=== PATIENT | male | born 1935 | race Native Hawaiian/Other Pacific Islander ===

== ENCOUNTER 2018-05-23 11:18 | Inpatient (IN) | payer MEDICARE, MEDICAID ==
[2018-05-23] MEDS: Albuterol-Ipratrop 3 mg / 0.5 (3 ml) UD IH SCH ×2 (12:45→12:59)
[2018-05-23] MEDS ORDERED: Albuterol-Ipratrop 3 mg / 0.5 (3 ml) UD ONE (12:55)
--- NOTE | 2018-05-23 13:00 | C.PDOC ---
History Of Present Illness 83 y/o male presents to the ED, sent in by Dr. Anastasiia Cheung. Patient has been complaining of SOB for the past 2 months. Per PMD, patient has some type of liver mass that is being worked up outpatient. Today patient had increased SOB. Family notes patient can barely walk to the bathroom without becoming short of breath. Otherwise they deny any pain, fever, chills, dizziness, weakness, numbness, or lower extremity swelling. Time Seen by Provider: 05/23/18 11:57 Chief Complaint (Nursing): Shortness Of Breath History Per: Patient History/Exam Limitations: no limitations Onset/Duration Of Symptoms: Days Current Symptoms Are (Timing): Worse Reports Recently: Treated By A Physician Past Medical History Reviewed: Historical Data, Nursing Documentation, Vital Signs Vital Signs: Last Vital Signs Temp 98.5 F 05/23/18 11:32 Pulse 104 H 05/23/18 11:32 Resp 18 05/23/18 11:32 BP 153/74 H 05/23/18 11:32 Pulse Ox 100 05/23/18 11:32 - Medical History PMH: Diabetes, HTN Family History: States: Unknown Family Hx - Social History Hx Alcohol Use: No Hx Substance Use: No - Immunization History Hx Tetanus Toxoid Vaccination: No Hx Influenza Vaccination: No Hx Pneumococcal Vaccination: No Review Of Systems Constitutional: Positive for: Weakness. Negative for: Fever, Chills Cardiovascular: Negative for: Chest Pain Respiratory: Positive for: Shortness of Breath, SOB with Excertion Gastrointestinal: Negative for: Vomiting, Abdominal Pain Skin: Negative for: Rash Physical Exam - Physical Exam Appears: Non-toxic, No Acute Distress, Other (Thin, frail man) Skin: Warm, Dry Head: Atraumatic, Normacephalic Eye(s): bilateral: Normal Inspection, PERRL, EOMI Oral Mucosa: Moist Neck: Normal ROM Chest: Symmetrical Cardiovascular: Rhythm Regular, No Murmur Respiratory: Normal Breath Sounds, No Rales, No Rhonchi, No Wheezing Gastrointestinal/Abdominal: Soft, No Tenderness, No Distention Extremity: Bilateral: Atraumatic, No Pedal Edema, Normal ROM Pulses: Left Dorsalis Pedis: Normal, Right Dorsalis Pedis: Normal Neurological/Psych: Oriented x3 Gait: Steady ED Course And Treatment - Laboratory Results Result Diagrams: 05/23/18 12:51 05/23/18 13:59 Lab Interpretation: Abnormal ECG: Interpreted By Co ECG Rhythm: Sinus Rhythm ECG Interpretation: No Acute Changes O2 Sat by Pulse Oximetry: 100 (RA) Pulse Ox Interpretation: Normal - Radiology CXR: Interpreted by Co CXR Interpretation: Yes: No Acute Disease - CT Scan/US No standard instances Other Rad Studies (CT/US): Read By Radiologist, Radiology Report Reviewed CT/US Interpretation: FINDINGS: CT CHEST WITHOUT CONTRAST: LUNGS: Limited linear atelectasis or fibrosis left upper lobe. No nodule, mass or consolidation. Trace bilateral basilar dependent atelectasis evident. M EDIASTINUM: Unremarkable. Normal caliber aorta and pulmonary arterial trunk. Normal size heart. LYMPH NODES: Unremarkable. PLEURA: There is a moderate- sized pleural/subpleural mass identified at the medial left apex measuring 2.0 x 4.2 x 3.7 cm (transverse x anteroposterior by superoinferior dimensions) eroding the medial posterior segment of the left 4th rib as well as the anterior and mid portions of the left T4 transverse process as well as a small portion of the inferior margins of the left T3 transverse process. No additional pleural mass identified bilaterally. No pleural effusion or pneumothorax identified bilaterally. BONES: See pleural section above. OTHER FINDINGS: None. CT ABDOMEN AND PELVIS: LIVER: There is a large mass in the right lobe liver measuring at least 8.4 x 8.1 x 9.4 cm with additional mass is suspected at the right and left lobes but poorly characterized given this unenhanced CT exam. No prominent biliary tree dilatation. GALLBLADDER AND BILE DUCTS: Unremarkable. PANCREAS: Unremarkable. No gross lesion or ductal dilatation. SPLEEN: Unremarkable. ADRENALS: Unremarkable. No mass. KIDNEYS AND URETERS: Unremarkable. No hydronephrosis. No solid mass. VASCULATURE: Nonaneurysmal abdominal aortic calcific atherosclerotic changes are identified. BOWEL: Evaluation of the gastrointestinal tract is limited due to the lack of oral contrast administration. No bowel obstruction appreciable. Moderate fecal loading throughout the colon. Sigmoid diverticulosis is noted without diverticulitis. A few nonacute diverticular changes seen at the cecum as well. APPENDIX: Normal appendix. PERITONEUM: Unremarkable. No free fluid. No free air. LYMPH NODES: Unremarkable. No enlarged lymph nodes. BLADDER: Unremarkable. REPRODUCTIVE: Mild prostate gland enlargement. BONES: Levoscoliotic lumbar spinal deformity. OTHER FINDINGS: None. IMPRESSION: 1. Medium sized medial left apical pleural mass measuring 4.2 cm greatest dimension with multiple hepatic mass identified highly suggestive of malignancy. Tissue diagnosis is advised at either site. Lack of contrast limits sensitivity and specificity of this examination. 2. No acute cardiopulmonary findings. 3. Colonic diverticular changes without diverticulitis. 4. Mild prostate gland enlargement. Progress Note: Treated with Insulin IV. On re-evaluation abdomen soft Reassessment Condition: Improved - Physician Consult Information Physician Contacted: Shahrzad Cheung Outcome Of Conversation: admit Medical Decision Making Medical Decision Making: Impression: Worsening SOB, hx of lung mass Plan: - Labs - EKG - Chest x-ray - CT Abdomen/Pelvis - CTA Chest - Duoneb x1 Case discussed with Dr. nAastasiia Cheung, will admit. Disposition Discussed With Dr.: Shahrzad Cheung Doctor Will See Patient In The: Hospital - Disposition Disposition: HOSPITALIZED Disposition Time: 17:00 Condition: STABLE - POA Present On Arrival: None - Clinical Impression Clinical Impression: Dyspnea - PA / FORM LAYER / Resident Statement MD/DO has reviewed & agrees with the documentation as recorded. - Scribe Statement The provider has reviewed the documentation as recorded by the Scribe Merlene Bain All medical record entries made by the Esdras were at my direction and personally dictated by me. I have reviewed the chart and agree that the record accurately reflects my personal performance of the history, physical exam, medical decision making, and the department course for this patient. I have also personally directed, reviewed, and agree with the discharge instructions and disposition. Decision To Admit - Pt Status Changed To: Hospital Disposition Of: Inpatient - Admit Certification Admit to Inpatient:: After my assessment, the patient will require hospitalization for at least two midnights. This is because of the severity of symptoms shown, intensity of services needed, and/or the medical risk in this patient being treated as an outpatient. - InPatient: Physician Admission Certification: I certify that this patient requires 2 or more midnights of care for the following reason:: dyspnea - . Bed Request Type: Regular Patient Diagnosis: Dyspnea
[2018-05-23 13:04] LABS: BASO # 0.1 K/uL (0.0-0.2); BASO % 1.1 % (0.0-2.0); EOS # 0.1 K/uL (0.0-0.7); EOS % 1.4 % (0.0-4.0); LYMPH # 0.8 K/uL (1.0-4.3); LYMPH % 8.3 % (20.0-40.0); MEAN CORPUSCULAR HEMOGLOBIN 29.2 pg (27.0-31.0); MEAN PLATELET VOLUME 7.8 fL (7.2-11.7); MONO % 10.5 % (0.0-10.0); NEUT # 7.2 K/uL (1.8-7.0); NEUT % 78.7 % (50.0-75.0); NRBC % 0.2 % (0.0-2.0); RBC 2.83 Mil/uL (4.40-5.90); RED CELL DISTRIBUTION WIDTH 15.9 % (11.5-14.5)
[2018-05-23 13:06] LABS: HEMOGLOBIN 8.3 g/dL (12.0-18.0); MEAN CELL VOLUME 88.5 fL (80.0-94.0); PLATELET COUNT 507 K/uL (130-400); WHITE BLOOD COUNT 9.1 K/uL (4.8-10.8)
[2018-05-23 13:16] LABS: INR 1.1; PROTHROMBIN TIME 12.5 SECONDS (9.7-12.2)
[2018-05-23 14:12] LABS: SQUAMOUS EPITHIAL 3 /hpf (0-5); URINE BILIRUBIN NEGATIVE (NEGATIVE); URINE BLOOD NEGATIVE (NEGATIVE); URINE CLARITY Clear (Clear); URINE COLOR Yellow (YELLOW); URINE GLUCOSE (UA) 3+ mg/dL (Normal); URINE LEUKOCYTE ESTERASE NEG Leu/uL (Negative); URINE PROTEIN 1+ mg/dL (NEGATIVE); URINE UROBILINOGEN NORMAL mg/dL (0.2-1.0)
[2018-05-23 14:17] LABS: ANISOCYTOSIS SLIGHT; BANDS 1 % (0-2); BASOPHIL 2 % (0-2); EOSINOPHIL 1 % (0-4); LYMPHOCYTE 8 % (20-40); MONOCYTE 6 % (0-10); NEUTROPHIL 82 % (50-75); PLATELET ESTIMATE INCREASED (NORMAL); TOTAL CELLS COUNTED 100
[2018-05-23 14:26] LABS: TROPONIN I 0.037 ng/mL (0.00-0.120)
--- NOTE | 2018-05-23 14:35 | RAD ---
Date of service: 05/23/2018 HISTORY: Shortness of breath COMPARISON: 08/12/2014. TECHNIQUE: Chest PA and lateral FINDINGS: LINES AND TUBES: None. LUNG AND PLEURA: The lungs are well inflated and clear. No pleural effusion or pneumothorax. HEART AND MEDIASTINUM: The heart is not enlarged. No aortic atherosclerotic calcifications present. The hilar and mediastinal contours are within normal limits. SKELETAL STRUCTURES: The bony structures are within normal limits for the patient's age. VISUALIZED UPPER ABDOMEN: Normal. OTHER FINDINGS: None. IMPRESSION: No active pulmonary disease.
[2018-05-23 14:51] LABS: ALB/GLOB RATIO 0.8 (1.0-2.1); ALBUMIN 3.4 g/dL (3.5-5.0); CALCIUM 9.4 mg/dl (8.6-10.4)
[2018-05-23] MEDS ORDERED: (Novolin R) Insulin Human Regular 100 units/ml vial IVP STA (14:57)
--- NOTE | 2018-05-23 16:40 | CT ---
Date of service: 05/23/2018 PROCEDURE: CT Chest, Abdomen and Pelvis without intravenous contrast HISTORY: dyspnea COMPARISON: None available. TECHNIQUE: Radiation dose: Total exam DLP = 291.92 mGy-cm. This CT exam was performed using one or more of the following dose reduction techniques: Automated exposure control, adjustment of the mA and/or kV according to patient size, and/or use of iterative reconstruction technique. FINDINGS: CT CHEST WITHOUT CONTRAST: LUNGS: Limited linear atelectasis or fibrosis left upper lobe. No nodule, mass or consolidation. Trace bilateral basilar dependent atelectasis evident. MEDIASTINUM: Unremarkable. Normal caliber aorta and pulmonary arterial trunk. Normal size heart. LYMPH NODES: Unremarkable. PLEURA: There is a moderate-sized pleural/subpleural mass identified at the medial left apex measuring 2.0 x 4.2 x 3.7 cm (transverse x anteroposterior by superoinferior dimensions) eroding the medial posterior segment of the left 4th rib as well as the anterior and mid portions of the left T4 transverse process as well as a small portion of the inferior margins of the left T3 transverse process. No additional pleural mass identified bilaterally. No pleural effusion or pneumothorax identified bilaterally. BONES: See pleural section above. OTHER FINDINGS: None. CT ABDOMEN AND PELVIS: LIVER: There is a large mass in the right lobe liver measuring at least 8.4 x 8.1 x 9.4 cm with additional mass is suspected at the right and left lobes but poorly characterized given this unenhanced CT exam. No prominent biliary tree dilatation. GALLBLADDER AND BILE DUCTS: Unremarkable. PANCREAS: Unremarkable. No gross lesion or ductal dilatation. SPLEEN: Unremarkable. ADRENALS: Unremarkable. No mass. KIDNEYS AND URETERS: Unremarkable. No hydronephrosis. No solid mass. VASCULATURE: Nonaneurysmal abdominal aortic calcific atherosclerotic changes are identified. BOWEL: Evaluation of the gastrointestinal tract is limited due to the lack of oral contrast administration. No bowel obstruction appreciable. Moderate fecal loading throughout the colon. Sigmoid diverticulosis is noted without diverticulitis. A few nonacute diverticular changes seen at the cecum as well. APPENDIX: Normal appendix. PERITONEUM: Unremarkable. No free fluid. No free air. LYMPH NODES: Unremarkable. No enlarged lymph nodes. BLADDER: Unremarkable. REPRODUCTIVE: Mild prostate gland enlargement. BONES: Levoscoliotic lumbar spinal deformity. OTHER FINDINGS: None. IMPRESSION: 1. Medium sized medial left apical pleural mass measuring 4.2 cm greatest dimension with multiple hepatic mass identified highly suggestive of malignancy. Tissue diagnosis is advised at either site. Lack of contrast limits sensitivity and specificity of this examination. 2. No acute cardiopulmonary findings. 3. Colonic diverticular changes without diverticulitis. 4. Mild prostate gland enlargement.
[2018-05-23] MEDS ORDERED: Dextrose 50% SYRINGE Inj (50 ml) IV PRN (16:53)
[2018-05-23] MEDS ORDERED: Glucagon Recombinant 1 mg Inj IM PRN (16:53)
[2018-05-23] MEDS: (Novolin R) Insulin Human Regular 100 units/ml vial SC SCH ×2 (17:49→21:22)
--- NOTE | 2018-05-23 18:51 | CP.PCM.HP ---
Present on Admission - Present on Admission Any Indicators Present on Admission: No Past Patient History - Past Social History Smoking Status: Never Smoked - CARDIAC Hx Hypertension: Yes - ENDOCRINE/METABOLIC Hx Endocrine Disorders: Yes Hx Diabetes Mellitus Type 2: Yes - PSYCHIATRIC Hx Substance Use: No - SURGICAL HISTORY Hx Surgeries: No - ANESTHESIA Hx Anesthesia: No Meds Allergies/Adverse Reactions: Allergies Allergy/AdvReac Type Severity Reaction Status Date / Time No Known Allergies Allergy Verified 05/23/18 11:37 Physical Exam - Constitutional Appears: Well - Head Exam Head Exam: ATRAUMATIC, NORMAL INSPECTION, NORMOCEPHALIC - Eye Exam Eye Exam: EOMI, Normal appearance, PERRL Pupil Exam: NORMAL ACCOMODATION, PERRL - ENT Exam ENT Exam: Mucous Membranes Moist, Normal Exam - Neck Exam Neck exam: Positive for: Normal Inspection - Respiratory Exam Respiratory Exam: Decreased Breath Sounds - Cardiovascular Exam Cardiovascular Exam: REGULAR RHYTHM, +S1, +S2 - GI/Abdominal Exam GI & Abdominal Exam: Diminished Bowel Sounds, Soft - Rectal Exam Rectal Exam: Deferred Results - Vital Signs Recent Vital Signs: Last Vital Signs Temp 98.7 F 05/23/18 16:26 Pulse 108 H 05/23/18 16:26 Resp 20 05/23/18 16:26 BP 161/83 H 05/23/18 16:26 Pulse Ox 100 05/23/18 17:25 - Labs Result Diagrams: 05/23/18 12:51 05/23/18 13:59 Labs: Laboratory Results - last 24 hr 05/23/18 05/23/18 05/23/18 12:51 12:51 13:45 WBC 9.1 D RBC 2.83 L Hgb 8.3 L D Hct 25.0 L MCV 88.5 D MCH 29.2 MCHC 33.0 RDW 15.9 H Plt Count 507 H D MPV 7.8 Neut % (Auto) 78.7 H Lymph % (Auto) 8.3 L Mason % (Auto) 10.5 H Eos % (Auto) 1.4 Baso % (Auto) 1.1 Neut # (Auto) 7.2 H Lymph # (Auto) 0.8 L Mason # (Auto) 1.0 H Eos # (Auto) 0.1 Baso # (Auto) 0.1 Neutrophils % (Manual) 82 H Band Neutrophils % 1 Lymphocytes % (Manual) 8 L Monocytes % (Manual) 6 Eosinophils % (Manual) 1 Basophils % (Manual) 2 Platelet Estimate Increased H Anisocytosis (manual) Slight PT 12.5 H INR 1.1 Sodium Potassium Chloride Carbon Dioxide Anion Gap BUN Creatinine Est GFR ( Amer) Est GFR (Non-Af Amer) POC Glucose (mg/dL) Random Glucose Calcium Total Bilirubin AST ALT Alkaline Phosphatase Troponin I NT-Pro-B Natriuret Pep Total Protein Albumin Globulin Albumin/Globulin Ratio Amylase Lipase Urine Color Yellow Urine Clarity Clear Urine pH 6.0 Ur Specific [place] 1.017 Urine Protein 1+ H Urine Glucose (UA) 3+ H Urine Ketones Negative Urine Blood Negative Urine Nitrate Negative Urine Bilirubin Negative Urine Urobilinogen Normal Ur Leukocyte Esterase Neg Urine WBC (Auto) 1 Ur Squamous Epith Cells 3 05/23/18 05/23/18 13:59 16:31 WBC RBC Hgb Hct MCV MCH MCHC RDW Plt Count MPV Neut % (Auto) Lymph % (Auto) Mason % (Auto) Eos % (Auto) Baso % (Auto) Neut # (Auto) Lymph # (Auto) Mason # (Auto) Eos # (Auto) Baso # (Auto) Neutrophils % (Manual) Band Neutrophils % Lymphocytes % (Manual) Monocytes % (Manual) Eosinophils % (Manual) Basophils % (Manual) Platelet Estimate Anisocytosis (manual) PT INR Sodium 132 Potassium 5.6 H Chloride 103 Carbon Dioxide 17 L Anion Gap 17 BUN 33 H Creatinine 1.8 H Est GFR ( Amer) 44 Est GFR (Non-Af Amer) 36 POC Glucose (mg/dL) 348 H Random Glucose 502 H* D Calcium 9.4 Total Bilirubin 0.5 AST 102 H ALT 77 H D Alkaline Phosphatase 204 H Troponin I 0.0370 NT-Pro-B Natriuret Pep 7350 H Total Protein 7.9 Albumin 3.4 L Globulin 4.5 H Albumin/Globulin Ratio 0.8 L Amylase 78 Lipase 471 H Urine Color Urine Clarity Urine pH Ur Specific [place] Urine Protein Urine Glucose (UA) Urine Ketones Urine Blood Urine Nitrate Urine Bilirubin Urine Urobilinogen Ur Leukocyte Esterase Urine WBC (Auto) Ur Squamous Epith Cells
[2018-05-24] MEDS: (Novolin R) Insulin Human Regular 100 units/ml vial SC SCH ×4 (08:18→21:30)
[2018-05-24] MEDS: Ferric Sodium Gluconat Complex 62.5 mg/5 ml Vial IVPB SCH (11:03)
--- NOTE | 2018-05-24 12:23 | CARD ---
APPROVED REPORT Date of service: 05/23/2018 EKG Measurement Heart [id number] <Conclusion> Normal sinus rhythm Left axis deviation Nonspecific ST and T wave abnormality Abnormal ECG
--- NOTE | 2018-05-24 17:43 | CP.PCM.PN ---
Subjective - Date & Time of Evaluation Date of Evaluation: 05/24/18 Time of Evaluation: 07:45 - Subjective Subjective: clinically same Objective - Vital Signs/Intake and Output Vital Signs (last 24 hours): Temp Pulse Resp BP Pulse Ox 98.1 F 99 H 20 127/75 99 05/24/18 16:17 05/24/18 16:17 05/24/18 16:17 05/24/18 16:17 05/24/18 16:17 Intake and Output: 05/24/18 05/24/18 06:59 18:59 Intake Total 320 500 Output Total 350 Balance -30 500 - Medications Medications: Current Medications Dextrose (Dextrose 50% Inj) 0 ml IV STAT PRN; Protocol PRN Reason: Hypoglycemia Protocol Dextrose (Glutose 15) 0 gm PO ONCE PRN; Protocol PRN Reason: Hypoglycemia Protocol Famotidine (Pepcid) 20 mg PO DAILY [facility] Last Admin: 05/24/18 11:03 Dose: 20 mg Ferric Sodium Gluconate Complex (Ferrlecit) 125 mg IVPB DAILY [facility] Stop: 06/01/18 10:01 Last Admin: 05/24/18 11:03 Dose: 125 mg Furosemide (Lasix) 40 mg PO DAILY [facility] Last Admin: 05/24/18 11:02 Dose: 40 mg Glimepiride (Amaryl) 2 mg PO DAILY [facility] Last Admin: 05/24/18 11:05 Dose: Not Given Glucagon (Glucagen Diagnostic Kit) 0 mg IM STAT PRN; Protocol PRN Reason: Hypoglycemia Protocol Dextrose (Dextrose 5% In Water 1000 Ml) 1,000 mls @ 0 mls/hr IV .Q0M PRN; Protocol PRN Reason: Hypoglycemia Protocol Insulin Human Regular (Novolin R) 0 unit SC ACHS [facility]; Protocol Last Admin: 05/24/18 12:53 Dose: 2 units Metoprolol Tartrate (Lopressor) 50 mg PO BID [facility] Last Admin: 05/24/18 17:18 Dose: 50 mg Rosuvastatin Calcium (Crestor) 5 mg PO HS [facility] Last Admin: 05/23/18 22:29 Dose: 5 mg Sitagliptin Phosphate (Januvia) 50 mg PO DAILY [facility] - Labs Labs: 05/23/18 12:51 05/23/18 13:59 PT 12.5 SECONDS (9.7-12.2) H 05/23/18 12:51 INR 1.1 02/06/19 12:51 - Constitutional Appears: Well - Head Exam Head Exam: ATRAUMATIC, NORMAL INSPECTION, NORMOCEPHALIC - Eye Exam Eye Exam: EOMI, Normal appearance, PERRL Pupil Exam: NORMAL ACCOMODATION, PERRL - ENT Exam ENT Exam: Mucous Membranes Moist, Normal Exam - Neck Exam Neck Exam: Full ROM, Normal Inspection. absent: Lymphadenopathy - Respiratory Exam Respiratory Exam: Decreased Breath Sounds - Cardiovascular Exam Cardiovascular Exam: REGULAR RHYTHM, +S1, +S2 - GI/Abdominal Exam GI & Abdominal Exam: Soft, Diminished Bowel Sounds - Rectal Exam Rectal Exam: Deferred
--- NOTE | 2018-05-24 20:32 | CON ---
DATE: 05/24/2018 HEMATOLOGY/ONCOLOGY CONSULTATION REASON FOR CONSULTATION: Lung and liver mass. 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 The patient was advised to continue monitoring the hepatoma with CAT scan, did not follow up after that. Recently, he was seen by Dr. Mayela Cheung with some shortness of breath for the past two months and was being worked up for the same. When came in to the ER for shortness of breath, fairly able to walk to the bathroom with some weight loss. He underwent a CAT scan of the chest, abdomen and pelvis in the hospital and was found to have a left-sided lung mass with infiltration into the ribs as well as multiple liver masses, hence Oncology consult has been requested. He complains of weakness and shortness of breath. No fevers or chills. Denies any vomiting or abdominal pain. He does state that his appetite has been poor and he has lost some weight. PAST MEDICAL HISTORY: Diabetes and hypertension. FAMILY HISTORY: Unknown. SOCIAL HISTORY: No social abuse of alcohol or smoker. PHYSICAL EXAMINATION: VITAL SIGNS: Temperature is 98.4, blood pressure is 150/70, pulse of 100, respirations 18. HEENT: Pale. No scleral icterus is seen. NECK: Supple. CHEST: Bilateral air entry is fair. CARDIOVASCULAR SYSTEM: S1 and S2. ABDOMEN: Soft. Hepatomegaly palpable. LABORATORY DATA: Labs show white count of 9.1, hemoglobin of 8.3, platelets of 507. BUN of 33, creatinine of 1.8. CAT scan of the chest, abdomen, and pelvis shows medium-sized medial left apical pleural mass measuring about 4.2 cm with multiple hepatic masses identified suggestive of malignancy. ASSESSMENT AND PLAN: An 83-year-old male with lung and liver mass. We will need a CT-guided biopsy of the liver mass to determine the etiology of the cancer. We will obtain tumor markers in the form of carcinoembryonic antigen and alpha-fetoprotein to determine what is the primary malignancy. We will continue to monitor the labs closely as the patient is anemic. We will obtain anemia workup in the form of ferritin, iron, B12, folic acid to determine the cause of the anemia, which probably is related to the malignancy. We will start on ferrelicit 125 mg daily. In the meantime, coags are normal. We will obtain CT-guided biopsy. Further recommendations once above obtained. Case will be discussed with Dr. Mayela Cheung. Thank you for the consult. Case was discussed with Dr. Kushal Cheung. We will follow the patient with you. Manjula Armando MD MTDD
[2018-05-25 07:25] LABS: BASO # 0.1 K/uL (0.0-0.2); BASO % 0.7 % (0.0-2.0); EOS # 0.3 K/uL (0.0-0.7); EOS % 3.2 % (0.0-4.0); HEMOGLOBIN 8.2 g/dL (12.0-18.0); LYMPH # 1.3 K/uL (1.0-4.3); LYMPH % 13.9 % (20.0-40.0); MEAN CORPUSCULAR HEMOGLOBIN 29.5 pg (27.0-31.0); MEAN CORPUSCULAR HGB CONC 34.2 g/dL (33.0-37.0); MEAN PLATELET VOLUME 7.8 fL (7.2-11.7); MONO # 1.1 K/uL (0.0-0.8); MONO % 12.1 % (0.0-10.0); NEUT # 6.4 K/uL (1.8-7.0); NEUT % 70.1 % (50.0-75.0); RBC 2.79 Mil/uL (4.40-5.90); RED CELL DISTRIBUTION WIDTH 15.5 % (11.5-14.5); WHITE BLOOD COUNT 9.1 K/uL (4.8-10.8)
[2018-05-25 07:35] LABS: IRON 36 ug/dL (49-181)
[2018-05-25 07:41] LABS: MEAN CELL VOLUME 86.2 fL (80.0-94.0)
[2018-05-25 07:43] VITALS: RESP 20
[2018-05-25] MEDS: (Novolin R) Insulin Human Regular 100 units/ml vial SC SCH ×4 (07:43→22:07)
[2018-05-25 07:45] LABS: % IRON SATURATION 14 (20-55); TOTAL IRON BINDING CAPACITY 257 ug/dL (250-450)
[2018-05-25 07:48] LABS: ALB/GLOB RATIO 0.8 (1.0-2.1); ALBUMIN 3.3 g/dL (3.5-5.0); ALT/SGPT 86 U/L (21-72); AST/SGOT 120 U/L (17-59); BLOOD UREA NITROGEN 32 mg/dL (9-20); CALCIUM 9.1 mg/dl (8.6-10.4); GFR NON-AFRICAN AMERICAN 29
[2018-05-25 08:33] LABS: FOLATE > 20.0 ng/mL
[2018-05-25] MEDS: Ferric Sodium Gluconat Complex 62.5 mg/5 ml Vial IVPB SCH (10:14)
[2018-05-25] MEDS: Multivitamin (MVI) 10 ML, Thiamine 100 MG, Folic Acid 1 MG in Sodium Chloride 0.9% 1,00... IV SCH (17:10)
--- NOTE | 2018-05-25 19:23 | CP.PCM.PN ---
Subjective - Date & Time of Evaluation Date of Evaluation: 05/25/18 Time of Evaluation: 07:45 - Subjective Subjective: clinically same Objective - Vital Signs/Intake and Output Vital Signs (last 24 hours): Temp Pulse Resp BP Pulse Ox 98.4 F 104 H 20 126/75 100 05/25/18 16:00 05/25/18 16:00 05/25/18 16:00 05/25/18 16:00 05/25/18 16:00 Intake and Output: 05/25/18 05/26/18 18:59 06:59 Intake Total 500 Balance 500 - Medications Medications: Current Medications Dextrose (Dextrose 50% Inj) 0 ml IV STAT PRN; Protocol PRN Reason: Hypoglycemia Protocol Dextrose (Glutose 15) 0 gm PO ONCE PRN; Protocol PRN Reason: Hypoglycemia Protocol Famotidine (Pepcid) 20 mg PO DAILY [facility] Last Admin: 05/25/18 10:13 Dose: 20 mg Ferric Sodium Gluconate Complex (Ferrlecit) 125 mg IVPB DAILY [facility] Stop: 06/01/18 10:01 Last Admin: 05/25/18 10:14 Dose: 125 mg Furosemide (Lasix) 40 mg PO DAILY [facility] Last Admin: 05/25/18 10:13 Dose: 40 mg Glimepiride (Amaryl) 2 mg PO DAILY [facility] Last Admin: 05/25/18 10:15 Dose: Not Given Glucagon (Glucagen Diagnostic Kit) 0 mg IM STAT PRN; Protocol PRN Reason: Hypoglycemia Protocol Dextrose (Dextrose 5% In Water 1000 Ml) 1,000 mls @ 0 mls/hr IV .Q0M PRN; Protocol PRN Reason: Hypoglycemia Protocol Multivitamins/Vitamin C 10 ml/Thiamine HCl 100 mg/ Folic Acid 1 mg/ Sodium Chloride 1,011.2 mls @ 60 mls/hr IV Q24H [facility] Last Admin: 05/25/18 17:10 Dose: 60 mls/hr Insulin Human Regular (Novolin R) 0 unit SC ACHS [facility]; Protocol Last Admin: 05/25/18 16:30 Dose: 2 units Metoprolol Tartrate (Lopressor) 50 mg PO BID [facility] Last Admin: 05/25/18 17:10 Dose: 50 mg Rosuvastatin Calcium (Crestor) 5 mg PO HS [facility] Last Admin: 05/24/18 21:29 Dose: 5 mg Sitagliptin Phosphate (Januvia) 50 mg PO DAILY [facility] Last Admin: 05/25/18 10:15 Dose: Not Given - Labs Labs: 05/25/18 06:53 05/25/18 06:53 PT 12.5 SECONDS (9.7-12.2) H 05/23/18 12:51 INR 1.1 05/23/18 12:51 - Constitutional Appears: Well - Head Exam Head Exam: ATRAUMATIC, NORMAL INSPECTION, NORMOCEPHALIC - Eye Exam Eye Exam: EOMI, Normal appearance, PERRL Pupil Exam: NORMAL ACCOMODATION, PERRL - ENT Exam ENT Exam: Mucous Membranes Moist, Normal Exam - Neck Exam Neck Exam: Full ROM, Normal Inspection. absent: Lymphadenopathy - Respiratory Exam Respiratory Exam: Decreased Breath Sounds - Cardiovascular Exam Cardiovascular Exam: REGULAR RHYTHM, +S1, +S2 - GI/Abdominal Exam GI & Abdominal Exam: Soft, Diminished Bowel Sounds - Rectal Exam Rectal Exam: Deferred
[2018-05-26] MEDS: (Novolin R) Insulin Human Regular 100 units/ml vial SC SCH ×4 (08:07→21:47)
--- NOTE | 2018-05-26 10:27 | CP.PCM.PN ---
Subjective - Date & Time of Evaluation Date of Evaluation: 05/26/18 Time of Evaluation: 07:45 - Subjective Subjective: clinically same Objective - Vital Signs/Intake and Output Vital Signs (last 24 hours): Temp Pulse Resp BP Pulse Ox 98.2 F 102 H 20 145/81 97 05/26/18 08:43 05/26/18 08:43 05/26/18 08:43 05/26/18 08:43 05/26/18 08:43 Intake and Output: 05/26/18 05/26/18 06:59 18:59 Intake Total 600 Balance 600 - Medications Medications: Current Medications Dextrose (Dextrose 50% Inj) 0 ml IV STAT PRN; Protocol PRN Reason: Hypoglycemia Protocol Dextrose (Glutose 15) 0 gm PO ONCE PRN; Protocol PRN Reason: Hypoglycemia Protocol Famotidine (Pepcid) 20 mg PO DAILY [facility] Last Admin: 05/25/18 10:13 Dose: 20 mg Fentanyl (Duragesic) 1 patch TD Q72H [facility] Last Admin: 05/26/18 01:01 Dose: 1 patch Ferric Sodium Gluconate Complex (Ferrlecit) 125 mg IVPB DAILY [facility] Stop: 06/01/18 10:01 Last Admin: 05/25/18 10:14 Dose: 125 mg Furosemide (Lasix) 40 mg PO DAILY [facility] Last Admin: 05/25/18 10:13 Dose: 40 mg Glimepiride (Amaryl) 2 mg PO DAILY [facility] Last Admin: 05/25/18 10:15 Dose: Not Given Glucagon (Glucagen Diagnostic Kit) 0 mg IM STAT PRN; Protocol PRN Reason: Hypoglycemia Protocol Dextrose (Dextrose 5% In Water 1000 Ml) 1,000 mls @ 0 mls/hr IV .Q0M PRN; Protocol PRN Reason: Hypoglycemia Protocol Multivitamins/Vitamin C 10 ml/Thiamine HCl 100 mg/ Folic Acid 1 mg/ Sodium Chloride 1,011.2 mls @ 60 mls/hr IV Q24H [facility] Last Admin: 05/25/18 17:10 Dose: 60 mls/hr Insulin Human Regular (Novolin R) 0 unit SC ACHS [facility]; Protocol Last Admin: 05/26/18 08:07 Dose: Not Given Metoprolol Tartrate (Lopressor) 50 mg PO BID [facility] Last Admin: 05/25/18 17:10 Dose: 50 mg Rosuvastatin Calcium (Crestor) 5 mg PO HS [facility] Last Admin: 05/25/18 22:07 Dose: 5 mg Sitagliptin Phosphate (Januvia) 50 mg PO DAILY [facility] Last Admin: 05/25/18 10:15 Dose: Not Given - Labs Labs: 05/25/18 06:53 05/25/18 06:53 PT 12.5 SECONDS (9.7-12.2) H 05/23/18 12:51 INR 1.1 05/23/18 12:51 - Constitutional Appears: Well - Head Exam Head Exam: ATRAUMATIC, NORMAL INSPECTION, NORMOCEPHALIC - Eye Exam Eye Exam: EOMI, Normal appearance, PERRL Pupil Exam: NORMAL ACCOMODATION, PERRL - ENT Exam ENT Exam: Mucous Membranes Moist, Normal Exam - Neck Exam Neck Exam: Full ROM, Normal Inspection. absent: Lymphadenopathy - Respiratory Exam Respiratory Exam: Decreased Breath Sounds - Cardiovascular Exam Cardiovascular Exam: REGULAR RHYTHM, +S1, +S2 - GI/Abdominal Exam GI & Abdominal Exam: Soft, Diminished Bowel Sounds - Rectal Exam Rectal Exam: Deferred Assessment and Plan (1) Diabetes Status: Acute (2) Weight loss of more than 10% body weight Status: Acute (3) Excessive weight loss Status: Acute (4) Dyspnea Status: Acute (5) Liver mass Status: Acute (6) Pleural mass Status: Acute - Assessment and Plan (Free Text) Plan: Spoke to interventional radiologist who claims that gets scheduled liver protocol although patient is creatinine is high so will give IV fluid and W report was called most likely biopsy to be done tomorrow morning we will continue to hold anticoagulations patient encouraged to eat extensive discussion done with the different family member next management as ordered sarah same family bedside spoke to family navya times spoke to onco
[2018-05-26] MEDS: Ferric Sodium Gluconat Complex 62.5 mg/5 ml Vial IVPB SCH (10:36)
[2018-05-26] MEDS: Multivitamin (MVI) 10 ML, Thiamine 100 MG, Folic Acid 1 MG in Sodium Chloride 0.9% 1,00... IV SCH (17:39)
[2018-05-27] MEDS: (Novolin R) Insulin Human Regular 100 units/ml vial SC SCH ×4 (08:30→21:35)
[2018-05-27] MEDS: Ferric Sodium Gluconat Complex 62.5 mg/5 ml Vial IVPB SCH (10:22)
[2018-05-27 11:13] LABS: BASO % 0.5 % (0.0-2.0); EOS # 0.2 K/uL (0.0-0.7); HEMOGLOBIN 8.1 g/dL (12.0-18.0); LYMPH # 0.9 K/uL (1.0-4.3); LYMPH % 10.8 % (20.0-40.0); MEAN CELL VOLUME 88.1 fL (80.0-94.0); MEAN CORPUSCULAR HEMOGLOBIN 29.6 pg (27.0-31.0); MEAN CORPUSCULAR HGB CONC 33.6 g/dL (33.0-37.0); MEAN PLATELET VOLUME 7.6 fL (7.2-11.7); MONO % 12.3 % (0.0-10.0); NEUT # 5.9 K/uL (1.8-7.0); NEUT % 73.4 % (50.0-75.0); RBC 2.73 Mil/uL (4.40-5.90); RED CELL DISTRIBUTION WIDTH 15.9 % (11.5-14.5); WHITE BLOOD COUNT 8.1 K/uL (4.8-10.8)
[2018-05-27 11:35] LABS: ALB/GLOB RATIO 0.8 (1.0-2.1); ALBUMIN 3.3 g/dL (3.5-5.0); CALCIUM 9.1 mg/dl (8.6-10.4)
[2018-05-27] MEDS ORDERED: Folic Acid 1 MG, Thiamine 100 MG, Multivitamin (MVI) 10 ML in Dextrose 5% In Water 1,00... IV SCH (14:00)
[2018-05-27] MEDS: Folic Acid 1 MG, Thiamine 100 MG, Multivitamin (MVI) 10 ML in Sodium Chloride 0.9% 1,00... IV SCH (15:00)
[2018-05-27] MEDS ORDERED: Iodixanol 320 mg/ml 150 ml Bottle IV ONE (15:46)
--- NOTE | 2018-05-27 16:12 | CP.PCM.PN ---
Subjective - Date & Time of Evaluation Date of Evaluation: 05/27/18 Time of Evaluation: 07:45 - Subjective Subjective: clinically same Objective - Vital Signs/Intake and Output Vital Signs (last 24 hours): Temp Pulse Resp BP Pulse Ox 97.8 F 110 H 20 146/78 99 05/27/18 15:00 05/27/18 15:00 05/27/18 15:00 05/27/18 15:00 05/27/18 15:00 Intake and Output: 05/27/18 05/27/18 06:59 18:59 Intake Total 570 1450 Balance 570 1450 - Medications Medications: Current Medications Dextrose (Dextrose 50% Inj) 0 ml IV STAT PRN; Protocol PRN Reason: Hypoglycemia Protocol Dextrose (Glutose 15) 0 gm PO ONCE PRN; Protocol PRN Reason: Hypoglycemia Protocol Famotidine (Pepcid) 20 mg PO DAILY [facility] Last Admin: 05/27/18 10:19 Dose: 20 mg Fentanyl (Duragesic) 1 patch TD Q72H [facility] Last Admin: 05/26/18 01:01 Dose: 1 patch Ferric Sodium Gluconate Complex (Ferrlecit) 125 mg IVPB DAILY [facility] Stop: 06/01/18 10:01 Last Admin: 05/27/18 10:22 Dose: 125 mg Furosemide (Lasix) 40 mg PO DAILY [facility] Last Admin: 05/27/18 10:20 Dose: 40 mg Glimepiride (Amaryl) 2 mg PO DAILY [facility] Last Admin: 05/27/18 10:19 Dose: 2 mg Glucagon (Glucagen Diagnostic Kit) 0 mg IM STAT PRN; Protocol PRN Reason: Hypoglycemia Protocol Folic Acid 1 mg/ Thiamine HCl 100 mg/ Multivitamins/Vitamin C 10 ml/ Sodium Chlo ride 1,011.2 mls @ 50 mls/hr IV .[id number] [facility] Last Admin: 05/27/18 15:00 Dose: 50 mls/hr Insulin Human Regular (Novolin R) 0 unit SC ACHS [facility]; Protocol Last Admin: 05/27/18 12:30 Dose: 10 units Metoprolol Tartrate (Lopressor) 50 mg PO BID [facility] Last Admin: 05/27/18 10:18 Dose: 50 mg Rosuvastatin Calcium (Crestor) 5 mg PO HS [facility] Last Admin: 05/26/18 21:47 Dose: 5 mg Sitagliptin Phosphate (Januvia) 50 mg PO DAILY [facility] Last Admin: 05/27/18 10:19 Dose: 50 mg - Labs Labs: 05/27/18 11:04 05/27/18 11:04 PT 12.5 SECONDS (9.7-12.2) H 05/23/18 12:51 INR 1.1 05/23/18 12:51 - Constitutional Appears: Well - Head Exam Head Exam: ATRAUMATIC, NORMAL INSPECTION, NORMOCEPHALIC - Eye Exam Eye Exam: EOMI, Normal appearance, PERRL Pupil Exam: NORMAL ACCOMODATION, PERRL - ENT Exam ENT Exam: Mucous Membranes Moist, Normal Exam - Neck Exam Neck Exam: Full ROM, Normal Inspection. absent: Lymphadenopathy - Respiratory Exam Respiratory Exam: Decreased Breath Sounds - Cardiovascular Exam Cardiovascular Exam: REGULAR RHYTHM, +S1, +S2 - GI/Abdominal Exam GI & Abdominal Exam: Soft, Diminished Bowel Sounds - Rectal Exam Rectal Exam: Deferred Assessment and Plan (1) Diabetes Status: Acute (2) Weight loss of more than 10% body weight Status: Acute (3) Excessive weight loss Status: Acute (4) Dyspnea Status: Acute (5) Liver mass Status: Acute (6) Pleural mass Status: Acute
--- NOTE | 2018-05-28 01:43 | PN ---
DATE: 05/27/2018 REASON FOR FOLLOWUP: Lung mass. SUBJECTIVE: The patient still continues to complain of some weakness. OBJECTIVE: VITAL SIGNS: Showed temperature 98.4, blood pressure is 140/72, pulse 100, respirations 18. HEENT: Conjunctivae pale. No scleral icterus is seen. NECK: Supple. LUNGS: Bilateral air entry is decreased at bases with rhonchi. CARDIOVASCULAR: S1 and S2. Regular rate and rhythm. ABDOMEN: Soft. LABORATORY DATA: Showed hemoglobin of 8.1, white count of 8.1, platelets of 450. Calcium of 9.1, BUN of 37, creatinine of 2. ASSESSMENT AND PLAN: An 83-year-old male with lung and liver mass. We will await biopsy of the liver mass. Liver CT scan has been done. We will discuss with Dr. Jh Cheung to obtain pulmonary consult as well as possibly lung biopsy would be potentially beneficial as well. We will discuss the case with the patient's family as well. Manjula Armando MD
[2018-05-28 07:05] LABS: ALB/GLOB RATIO 0.8 (1.0-2.1); ALBUMIN 3.3 g/dL (3.5-5.0); CALCIUM 9.1 mg/dl (8.6-10.4)
[2018-05-28 07:24] LABS: BASO % 0.4 % (0.0-2.0); EOS # 0.4 K/uL (0.0-0.7); EOS % 4.4 % (0.0-4.0); HEMOGLOBIN 8.4 g/dL (12.0-18.0); LYMPH # 1.4 K/uL (1.0-4.3); LYMPH % 14.5 % (20.0-40.0); MEAN CORPUSCULAR HEMOGLOBIN 29.5 pg (27.0-31.0); MEAN CORPUSCULAR HGB CONC 34.2 g/dL (33.0-37.0); MEAN PLATELET VOLUME 7.4 fL (7.2-11.7); MONO # 1.2 K/uL (0.0-0.8); MONO % 12.9 % (0.0-10.0); NEUT # 6.4 K/uL (1.8-7.0); NEUT % 67.8 % (50.0-75.0); RBC 2.86 Mil/uL (4.40-5.90); RED CELL DISTRIBUTION WIDTH 15.8 % (11.5-14.5); WHITE BLOOD COUNT 9.4 K/uL (4.8-10.8)
[2018-05-28 07:36] LABS: MEAN CELL VOLUME 86.1 fL (80.0-94.0)
[2018-05-28] MEDS: (Novolin R) Insulin Human Regular 100 units/ml vial SC SCH ×4 (08:21→22:23)
[2018-05-28] MEDS: Ferric Sodium Gluconat Complex 62.5 mg/5 ml Vial IVPB SCH (09:57)
--- NOTE | 2018-05-28 13:51 | CT ---
Date of service: 05/27/2018 CT Liver Protocol without/with IV contrast Indication: liver mass Technique: Contiguous axial images of the abdomen and pelvis without & with IV contrast utilizing liver protocol. Coronal and Sagittal reformats generated and reviewed. This CT exam was performed using 1 or more of the following dose reduction techniques: Automated exposure control, adjustment of the MAA and/or kV according to patient size, and/or use of iterative reconstruction technique. Contrast: 100 mL Visipaque 320 IV Radiation dose: Total exam DLP = 669.55 MGy-cm. Comparison: CT chest, abdomen, and pelvis without IV contrast performed 05/23/18 Findings: Partially imaged cardiomegaly. Coronary artery calcifications. Minimal basilar atelectasis. No visible pleural effusion or pneumothorax. Heterogeneous and hyperdense hepatic masses. For example, largest heterogeneous masses are noted in the right hepatic lobe measuring approximately 3.8 x 3.3 cm and 9.7 x 9.6 cm. 2 hyperdense right hepatic lobe masses measuring 2.2 cm and 1.9 cm, hepatic dome. 1.5 x 2.9 cm hypodense region within the pancreatic body seen only on portal venous phase (series 8, image 58) favored to represent artifact. No abnormality evident on the arterial phase in the same region. The spleen, kidneys, adrenal glands, and gallbladder appear unremarkable. The stomach is nondistended. The bowel loops appear within normal limits of caliber without evidence of intestinal obstruction. Diverticulosis without CT evidence of acute diverticulitis. There is no definite free air. 1.3 x 2.1 cm filling defect within the distal IVC/left common iliac junction. Additional filling defect measuring approximately 6 mm in the left common iliac. 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 Degenerative changes. Grade 1 anterolisthesis of L5 on S1; grade 1 retrolisthesis L3 on L4. L1 compression fracture deformity. Scoliosis. Impression: Numerous hepatic masses as described above, indeterminate. Malignant neoplasm must be excluded. Suggest correlation with tissue sampling if indicated. 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 1.5 x 2.9 cm hypodense region within the pancreatic body seen only on portal venous phase favored to represent artifact. No abnormality evident on the arterial phase in the same region. Recommend continued attention on short interval follow-up. L1 compression fracture deformity; age indeterminate. Suggest MRI for further evaluation if indicated. Additional findings as above. Preliminary impression was provided by [facility].Discordant findings discussed with the patient's RN Mikaela on 05/28/18 at 140 pm
[2018-05-28] MEDS: Folic Acid 1 MG, Thiamine 100 MG, Multivitamin (MVI) 10 ML in Sodium Chloride 0.9% 1,00... IV SCH ×2 (14:20→19:07)
--- NOTE | 2018-05-28 14:48 | CP.PCM.PN ---
Subjective - Date & Time of Evaluation Date of Evaluation: 05/28/18 Time of Evaluation: 07:45 - Subjective Subjective: clinically same Objective - Vital Signs/Intake and Output Vital Signs (last 24 hours): Temp Pulse Resp BP Pulse Ox 97.6 F 91 H 20 155/78 H 97 05/28/18 08:00 05/28/18 08:00 05/28/18 08:00 05/28/18 09:53 05/28/18 08:00 Intake and Output: 05/28/18 05/28/18 06:59 18:59 Intake Total 1120 Balance 1120 - Medications Medications: Current Medications Dextrose (Dextrose 50% Inj) 0 ml IV STAT PRN; Protocol PRN Reason: Hypoglycemia Protocol Dextrose (Glutose 15) 0 gm PO ONCE PRN; Protocol PRN Reason: Hypoglycemia Protocol Famotidine (Pepcid) 20 mg PO DAILY [facility] Last Admin: 05/28/18 09:53 Dose: 20 mg Fentanyl (Duragesic) 1 patch TD Q72H [facility] Last Admin: 05/26/18 01:01 Dose: 1 patch Ferric Sodium Gluconate Complex (Ferrlecit) 125 mg IVPB DAILY [facility] Stop: 06/01/18 10:01 Last Admin: 05/28/18 09:57 Dose: 125 mg Furosemide (Lasix) 40 mg PO DAILY [facility] Last Admin: 05/28/18 09:53 Dose: 40 mg Glimepiride (Amaryl) 2 mg PO DAILY [facility] Last Admin: 05/28/18 09:53 Dose: 2 mg Glucagon (Glucagen Diagnostic Kit) 0 mg IM STAT PRN; Protocol PRN Reason: Hypoglycemia Protocol Folic Acid 1 mg/ Thiamine HCl 100 mg/ Multivitamins/Vitamin C 10 ml/ Sodium Chloride 1,011.2 mls @ 50 mls/hr IV .[id number] [facility] Last Admin: 05/28/18 14:20 Dose: Not Given Insulin Human Regular (Novolin R) 0 unit SC ACHS [facility]; Protocol Last Admin: 05/28/18 11:28 Dose: 4 units Metoprolol Tartrate (Lopressor) 50 mg PO BID [facility] Last Admin: 05/28/18 09:57 Dose: 50 mg Rosuvastatin Calcium (Crestor) 5 mg PO HS [facility] Last Admin: 05/27/18 21:34 Dose: 5 mg Sitagliptin Phosphate (Januvia) 25 mg PO DAILY [facility] Last Admin: 05/28/18 09:53 Dose: 25 mg - Labs Labs: 05/28/18 06:43 05/28/18 06:43 PT 12.5 SECONDS (9.7-12.2) H 05/23/18 12:51 INR 1.1 05/23/18 12:51 - Constitutional Appears: Well - Head Exam Head Exam: ATRAUMATIC, NORMAL INSPECTION, NORMOCEPHALIC - Eye Exam Eye Exam: EOMI, Normal appearance, PERRL Pupil Exam: NORMAL ACCOMODATION, PERRL - ENT Exam ENT Exam: Mucous Membranes Moist, Normal Exam - Neck Exam Neck Exam: Full ROM, Normal Inspection. absent: Lymphadenopathy - Respiratory Exam Respiratory Exam: Decreased Breath Sounds - Cardiovascular Exam Cardiovascular Exam: REGULAR RHYTHM, +S1, +S2 - GI/Abdominal Exam GI & Abdominal Exam: Soft, Diminished Bowel Sounds - Rectal Exam Rectal Exam: Deferred Assessment and Plan (1) Diabetes Status: Acute (2) Weight loss of more than 10% body weight Status: Acute (3) Excessive weight loss Status: Acute (4) Dyspnea Status: Acute (5) Liver mass Status: Acute (6) Pleural mass Status: Acute
[2018-05-29] MEDS: Folic Acid 1 MG, Thiamine 100 MG, Multivitamin (MVI) 10 ML in Sodium Chloride 0.9% 1,00... IV SCH ×2 (06:24→06:25)
[2018-05-29] MEDS: (Novolin R) Insulin Human Regular 100 units/ml vial SC SCH ×3 (07:52→18:00)
[2018-05-29] MEDS: Ferric Sodium Gluconat Complex 62.5 mg/5 ml Vial IVPB SCH (09:55)
--- NOTE | 2018-05-29 12:11 | CP.PCM.PN ---
Subjective - Date & Time of Evaluation Date of Evaluation: 05/29/18 Time of Evaluation: 07:45 - Subjective Subjective: clinically same Objective - Vital Signs/Intake and Output Vital Signs (last 24 hours): Temp Pulse Resp BP Pulse Ox 98.1 F 91 H 20 128/75 100 05/29/18 07:57 05/29/18 07:57 05/29/18 07:57 05/29/18 09:54 05/29/18 07:57 Intake and Output: 05/29/18 05/29/18 06:59 18:59 Intake Total 800 600 Balance 800 600 - Medications Medications: Current Medications Apixaban (Eliquis) 5 mg PO BID [facility] Last Admin: 05/29/18 09:55 Dose: 5 mg Dextrose (Dextrose 50% Inj) 0 ml IV STAT PRN; Protocol PRN Reason: Hypoglycemia Protocol Dextrose (Glutose 15) 0 gm PO ONCE PRN; Protocol PRN Reason: Hypoglycemia Protocol Famotidine (Pepcid) 20 mg PO DAILY [facility] Last Admin: 05/29/18 09:54 Dose: 20 mg Fentanyl (Duragesic) 1 patch TD Q72H [facility] Last Admin: 05/29/18 00:37 Dose: 1 patch Ferric Sodium Gluconate Complex (Ferrlecit) 125 mg IVPB DAILY [facility] Stop: 06/01/18 10:01 Last Admin: 05/29/18 09:55 Dose: 125 mg Furosemide (Lasix) 40 mg PO DAILY [facility] Last Admin: 05/29/18 09:54 Dose: 40 mg Glimepiride (Amaryl) 2 mg PO DAILY [facility] Last Admin: 05/29/18 09:55 Dose: 2 mg Glucagon (Glucagen Diagnostic Kit) 0 mg IM STAT PRN; Protocol PRN Reason: Hypoglycemia Protocol Folic Acid 1 mg/ Thiamine HCl 100 mg/ Multivitamins/Vitamin C 10 ml/ Sodium Chloride 1,011.2 mls @ 50 mls/hr IV .[id number] [facility] Last Admin: 05/29/18 06:25 Dose: Not Given Insulin Human Regular (Novolin R) 0 unit SC ACHS [facility]; Protocol Last Admin: 05/29/18 11:48 Dose: 3 units Metoprolol Tartrate (Lopressor) 50 mg PO BID [facility] Last Admin: 05/29/18 09:55 Dose: 50 mg Rosuvastatin Calcium (Crestor) 5 mg PO HS [facility] Last Admin: 05/28/18 21:40 Dose: 5 mg Sitagliptin Phosphate (Januvia) 25 mg PO DAILY [facility] Last Admin: 05/29/18 09:55 Dose: 25 mg - Labs Labs: 05/28/18 06:43 05/28/18 06:43 PT 12.5 SECONDS (9.7-12.2) H 05/23/18 12:51 INR 1.1 05/23/18 12:51 - Constitutional Appears: Well - Head Exam Head Exam: ATRAUMATIC, NORMAL INSPECTION, NORMOCEPHALIC - Eye Exam Eye Exam: EOMI, Normal appearance, PERRL Pupil Exam: NORMAL ACCOMODATION, PERRL - ENT Exam ENT Exam: Mucous Membranes Moist, Normal Exam - Neck Exam Neck Exam: Full ROM, Normal Inspection. absent: Lymphadenopathy - Respiratory Exam Respiratory Exam: Decreased Breath Sounds - Cardiovascular Exam Cardiovascular Exam: REGULAR RHYTHM, +S1, +S2 - GI/Abdominal Exam GI & Abdominal Exam: Soft, Diminished Bowel Sounds - Rectal Exam Rectal Exam: Deferred Assessment and Plan (1) Diabetes Status: Acute (2) Weight loss of more than 10% body weight Status: Acute (3) Excessive weight loss Status: Acute (4) Dyspnea Status: Acute (5) Liver mass Status: Acute (6) Pleural mass Status: Acute
--- NOTE | 2018-05-29 13:40 | CP.PCM.CON ---
History of Present Illness - History of Present Illness History of Present Illness: Palliative consult requested by Doctor Anastasiia Cheung for goals of care discussion and symptoms management Patient is a 83 yo male admitted from home with SOB X 2 months and with worsening of that condition on the day of admission. Patient become very weak , unable to walk to the bathroom due to SOB, denies fever and LEs edema. About 1.5 ago patient was worked up as an outpatient for some liver mass but did not fallow up with it. On this admission patient was found with left pleural mass, multiple liver masses very highly suspicion of malignancy with infiltration to the ribs. Doctor Prabha was called on consult and CT guided biopsy was suggested. Patient was also found anemic with HB 8.4 and is treated with FE infusions and Folic acid supplements. His nutritional status was of concenr and PPN was started. patient was also ordered Fentanyl patch 25 mcg for cancer related pain. PMH: HTN, DM, liver mass , lung cancer, possible bone mets Soc. Hx: , lives at home Fam. Hx: no Hx of cancer Review of Systems - Constitutional Constitutional: Anorexia, Weight Loss, Weakness - EENT Eyes: absent: As Per HPI, Blind Spots, Blurred Vision, Change in Vision, Decreased Night Vision, Diplopia, Discharge, Dry Eye, Exophthalmos, Floaters, Irritation, Itchy Eyes, Loss of Peripheral Vision, Pain, Photophobia, Requires C orrective Lenses, Sees Flashes, Spots in Vision, Tunnel Vision, Other Visual Disturbances, Loss of Vision, Other Ears: absent: As Per HPI, Decreased Hearing, Ear Discharge, Ear Pain, Tinnitus, Abnormal Hearing, Disequilibrium, Dizziness, Other Nose/Mouth/Throat: absent: As Per HPI, Epistaxis, Nasal Congestion, Nasal Discharge, Nasal Obstruction, Nasal Trauma, Nose Pain, Post Nasal Drip, Sinus Pain, Sinus Pressure, Bleeding Gums, Change in Voice, Dental Pain, Dry Mouth, Dysphagia, Halitosis, Hoarsness, Lip Swelling, Mouth Lesions, Mouth Pain, Od ynophagia, Sore Throat, Throat Swelling, Tongue Swelling, Facial Pain, Neck Pain, Neck Mass, Other - Cardiovascular Cardiovascular: absent: As Per HPI, Acrocyanosis, Chest Pain, Chest Pain at Rest, Chest Pain with Activity, Claudication, Diaphoresis, Dyspnea, Dyspnea on Exertion, Edema, Irregular Heart Rhythm, Pain Radiating to Arm/Neck/Jaw, Leg Edema, Leg Ulcers, Lightheadedness, Orthopnea, Palpitations, Paroxysmal Nocturnal Dyspnea, Pedal Edema, Radiating Pain, Rapid Heart Rate, Slow Heart Rate, Syncope, Other - Respiratory Respiratory: Dyspnea on Exertion - Gastrointestinal Gastrointestinal: Abdominal Pain, Nausea - Genitourinary Genitourinary: absent: As Per HPI, Change in Urinary Stream, Difficulty Urinating, Dysuria, Flank Pain, Hematuria, Pyuria, Nocturia, Urinary Incontinence, Urinary Frequency, Urinary Hesitance, Urinary Urgency, Voiding Freq/Small Amts, Freq UTI, Hx Renal/Bladder Calculi, Hx /Renal Surgery, Bladder Distension, Other - Musculoskeletal Musculoskeletal: Limited Range of Motion - Neurological Neurological: absent: As Per HPI, Abnormal Gait, Abnormal Hearing, Abnormal Movements, Abnormal Speech, Behavioral Changes, Burning Sensations, Confusion, Convulsions, Disequilibrium, Dizziness, Numbness, Focal Weakness, Frequent Fal ls, Headaches, Lack of Coordination, Loss of Vision, Memory Loss, Paresthesias, Radicular Pain, Restless Legs, Sensory Deficit, Syncope, Tingling, Tremor, Vertigo, Weakness, Other Visual Disturbances, Other - Psychiatric Psychiatric: absent: As Per HPI, Abnormal Sleep Pattern, Anhedonia, Anxiety, Auditory Hallucinations, Behavioral Changes, Change in Appetite, Change in Libido, Confusion, Depression, Difficulty Concentrating, Hallucinations, Homicidal Ideation, Hopelessness, Irritability, Memory Loss, Mood Swings, Panic Attacks, Paranoia, Suicidal Ideation, Visual Hallucinations, Tactile Hallucinations, Other - Endocrine Endocrine: absent: As Per HPI, Change in Body Appearance, Change in Libido, Cold Intolorance, Deepening of Voice, Excessive Sweating, Fatigue, Flushing, Heat Intolorance, Increase in Ring/Shoe/Hat Size, Palpitations, Polydipsia, Polyphagia, Polyuria, Other - Hematologic/Lymphatic Hematologic: absent: As Per HPI, Easy Bleeding, Easy Bruising, Lymphadenopathy, Other Past Patient History - Past Medical History & Family History Past Medical History?: Yes - Past Social History Smoking Status: Never Smoked - CARDIAC Hx Hypertension: Yes - ENDOCRINE/METABOLIC Hx Diabetes Mellitus Type 2: Yes - MUSCULOSKELETAL/RHEUMATOLOGICAL Hx Falls: No - PSYCHIATRIC Hx Substance Use: No - SURGICAL HISTORY Hx Surgeries: No - ANESTHESIA Hx Anesthesia: No Meds Allergies/Adverse Reactions: Allergies Allergy/AdvReac Type Severity Reaction Status Date / Time No Known Allergies Allergy Verified 05/23/18 11:37 - Medications Medications: Current Medications Apixaban (Eliquis) 5 mg PO BID [facility] Last Admin: 05/29/18 09:55 Dose: 5 mg Dextrose (Dextrose 50% Inj) 0 ml IV STAT PRN; Protocol PRN Reason: Hypoglycemia Protocol Dextrose (Glutose 15) 0 gm PO ONCE PRN; Protocol PRN Reason: Hypoglycemia Protocol Famotidine (Pepcid) 20 mg PO DAILY [facility] Last Admin: 05/29/18 09:54 Dose: 20 mg Fentanyl (Duragesic) 1 patch TD Q72H [facility] Last Admin: 05/29/18 00:37 Dose: 1 patch Ferric Sodium Gluconate Complex (Ferrlecit) 125 mg IVPB DAILY [facility] Stop: 06/01/18 10:01 Last Admin: 05/29/18 09:55 Dose: 125 mg Furosemide (Lasix) 40 mg PO DAILY [facility] Last Admin: 05/29/18 09:54 Dose: 40 mg Glimepiride (Amaryl) 2 mg PO DAILY [facility] Last Admin: 05/29/18 09:55 Dose: 2 mg Glucagon (Glucagen Diagnostic Kit) 0 mg IM STAT PRN; Protocol PRN Reason: Hypoglycemia Protocol Folic Acid 1 mg/ Thiamine HCl 100 mg/ Multivitamins/Vitamin C 10 ml/ Sodium Chloride 1,011.2 mls @ 50 mls/hr IV .[id number] [facility] Last Admin: 05/29/18 06:25 Dose: Not Given Insulin Human Regular (Novolin R) 0 unit SC ACHS [facility]; Protocol Last Admin: 05/29/18 11:48 Dose: 3 units Metoprolol Tartrate (Lopressor) 50 mg PO BID [facility] Last Admin: 05/29/18 09:55 Dose: 50 mg Rosuvastatin Calcium (Crestor) 5 mg PO HS [facility] Last Admin: 05/28/18 21:40 Dose: 5 mg Sitagliptin Phosphate (Januvia) 25 mg PO DAILY [facility] Last Admin: 05/29/18 09:55 Dose: 25 mg Physical Exam - Constitutional Appears: Chronically Ill - Head Exam Head Exam: ATRAUMATIC, NORMAL INSPECTION, NORMOCEPHALIC - Eye Exam Eye Exam: EOMI, Normal appearance, PERRL Pupil Exam: NORMAL ACCOMODATION, PERRL - ENT Exam ENT Exam: Mucous Membranes Moist, Normal Exam - Neck Exam Neck exam: Positive for: Normal Inspection - Respiratory Exam Respiratory Exam: Decreased Breath Sounds, NORMAL BREATHING PATTERN - Cardiovascular Exam Cardiovascular Exam: Tachycardia, REGULAR RHYTHM - GI/Abdominal Exam GI & Abdominal Exam: Normal Bowel Sounds, Soft - Rectal Exam Rectal Exam: Deferred - Exam Exam: NORMAL INSPECTION - Extremities Exam Extremities exam: Positive for: normal inspection - Back Exam Back exam: NORMAL INSPECTION - Neurological Exam Neurological exam: Alert, Oriented x3 - Psychiatric Exam Psychiatric exam: Depressed - Skin Skin Exam: Dry, Intact, Pallor, Pallor Results - Vital Signs Recent Vital Signs: Last Vital Signs Temp 98.1 F 05/29/18 07:57 Pulse 91 H 05/29/18 07:57 Resp 20 05/29/18 07:57 BP 128/75 05/29/18 09:54 Pulse Ox 100 05/29/18 07:57 - Labs Result Diagrams: 05/28/18 06:43 05/28/18 06:43 Labs: Laboratory Results - last 24 hr 05/28/18 05/28/18 05/29/18 16:41 21:53 07:13 POC Glucose (mg/dL) 281 H 240 H 224 H 05/29/18 11:33 POC Glucose (mg/dL) 201 H Assessment & Plan - Assessment and Plan (Free Text) Assessment: Palliative consult Full Code, there is no Advance Directive on chart, PPS 20% I reviewed all medical records and diagnostic studies, examined and interviewed patient in the bed Patient is alert, oriented X 3 with speech that is clear, looking chronically ill and very weak. Skin is pale, and dry. Breathing is shallow, regular, denies SOB at rest. Abdomen soft, denies abdominal pain, bowel sounds present. Urinates using urinal, at bedside reports urine is yellow. Patient is bed ridden due to weakness. His appetite is poor. Family at bed side is very concerned and protective of patient; they do not want him to know about his diagnosis. away from bedside I discussed patient's condition with his daughter Jl. She stated understanding of wide spread can cer and for now her and her siblings want o provide the father with all supportive measures to get him stronger if at all possible. I provide more information about advanced cancer and option of care but at the same time reassuring her that patient was receiving all needed care. Family understands that an Chemo Tx at this time is not appropriate due to overall weakness of the patient and will be left for some other time. For now family is focused on comfort with all supplemental Tx including PPN. I discussed the PPN and its use for a limited time only and need for Central line access to avoid frequent replacement of Hep Locks. Daughter agreed. Further I discussed with the daughter the concern which is always related to the diagnosis of cancer, and it is . She cried but said, if patient remains weak and declining she will reach ot to me for further discussion. I provided her with contact info. 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 * Full Code Advance care planing 46 min palliative care will continue to fallow up with patient and family and offer support.
[2018-05-30] MEDS: Folic Acid 1 MG, Thiamine 100 MG, Multivitamin (MVI) 10 ML in Sodium Chloride 0.9% 1,00... IV SCH (05:56)
[2018-05-30] MEDS: (Novolin R) Insulin Human Regular 100 units/ml vial SC SCH ×2 (07:37→11:57)
[2018-05-30 07:49] VITALS: TEMP 95.7
[2018-05-30] MEDS: Ferric Sodium Gluconat Complex 62.5 mg/5 ml Vial IVPB SCH (09:31)
[2018-05-30 12:48] VITALS: BP 154/84; PULSE 109; O2SAT 98
--- NOTE | 2018-05-30 14:29 | CP.PCM.PN ---
Subjective - Date & Time of Evaluation Date of Evaluation: 05/30/18 Time of Evaluation: 07:15 - Subjective Subjective: clinically same Objective - Vital Signs/Intake and Output Vital Signs (last 24 hours): Temp Pulse Resp BP Pulse Ox 95.7 F L 109 H 20 154/84 H 98 05/30/18 07:48 05/30/18 12:43 05/30/18 07:48 05/30/18 12:43 05/30/18 12:43 Intake and Output: 05/30/18 05/30/18 06:59 18:59 Intake Total 580 1100 Balance 580 1100 - Medications Medications: Current Medications Amlodipine Besylate (Norvasc) 5 mg PO DAILY [facility] Last Admin: 05/30/18 11:57 Dose: 5 mg Apixaban (Eliquis) 5 mg PO BID [facility] Last Admin: 05/30/18 09:31 Dose: 5 mg Dextrose (Dextrose 50% Inj) 0 ml IV STAT PRN; Protocol PRN Reason: Hypoglycemia Protocol Dextrose (Glutose 15) 0 gm PO ONCE PRN; Protocol PRN Reason: Hypoglycemia Protocol Famotidine (Pepcid) 20 mg PO DAILY [facility] Last Admin: 05/30/18 09:43 Dose: 20 mg Ferric Sodium Gluconate Complex (Ferrlecit) 125 mg IVPB DAILY [facility] Stop: 06/01/18 10:01 Last Admin: 05/30/18 09:31 Dose: 125 mg Furosemide (Lasix) 40 mg PO DAILY [facility] Last Admin: 05/30/18 09:30 Dose: 40 mg Glimepiride (Amaryl) 2 mg PO DAILY [facility] Last Admin: 05/30/18 09:31 Dose: 2 mg Glucagon (Glucagen Diagnostic Kit) 0 mg IM STAT PRN; Protocol PRN Reason: Hypoglycemia Protocol Folic Acid 1 mg/ Thiamine HCl 100 mg/ Multivitamins/Vitamin C 10 ml/ Sodium Chloride 1,011.2 mls @ 50 mls/hr IV .[id number] [facility] Last Admin: 05/30/18 05:56 Dose: Not Given Insulin Human Regular (Novolin R) 0 unit SC [facility]; Protocol Last Admin: 05/30/18 11:57 Dose: 3 units Metoprolol Tartrate (Lopressor) 50 mg PO BID [facility] Last Admin: 05/30/18 09:31 Dose: 50 mg Rosuvastatin Calcium (Crestor) 5 mg PO HS [facility] Last Admin: 05/28/18 21:40 Dose: 5 mg Sitagliptin Phosphate (Januvia) 25 mg PO DAILY [facility] Last Admin: 05/30/18 09:30 Dose: 25 mg - Labs Labs: 05/28/18 06:43 05/28/18 06:43 PT 12.5 SECONDS (9.7-12.2) H 05/23/18 12:51 INR 1.1 05/23/18 12:51 - Constitutional Appears: Well - Head Exam Head Exam: ATRAUMATIC, NORMAL INSPECTION, NORMOCEPHALIC - Eye Exam Eye Exam: EOMI, Normal appearance, PERRL Pupil Exam: NORMAL ACCOMODATION, PERRL - ENT Exam ENT Exam: Mucous Membranes Moist, Normal Exam - Neck Exam Neck Exam: Full ROM, Normal Inspection. absent: Lymphadenopathy - Respiratory Exam Respiratory Exam: Decreased Breath Sounds - Cardiovascular Exam Cardiovascular Exam: REGULAR RHYTHM, +S1, +S2 - GI/Abdominal Exam GI & Abdominal Exam: Soft, Diminished Bowel Sounds - Rectal Exam Rectal Exam: Deferred Assessment and Plan (1) Diabetes Status: Acute (2) Weight loss of more than 10% body weight Status: Acute (3) Excessive weight loss Status: Acute (4) Dyspnea Status: Acute (5) Liver mass Status: Acute (6) Pleural mass Status: Acute
--- NOTE | 2018-05-30 17:04 | CP.PCM.PN ---
Subjective - Date & Time of Evaluation Date of Evaluation: 05/30/18 Time of Evaluation: 17:04 - Subjective Subjective: awake, alert, no acute sob or distress. Objective - Vital Signs/Intake and Output Vital Signs (last 24 hours): Temp Pulse Resp BP Pulse Ox 95.7 F L 109 H 20 154/84 H 98 05/30/18 07:48 05/30/18 12:43 05/30/18 07:48 05/30/18 12:43 05/30/18 12:43 Intake and Output: 05/30/18 05/30/18 06:59 18:59 Intake Total 580 1100 Balance 580 1100 - Labs Labs: 05/28/18 06:43 05/28/18 06:43 PT 12.5 SECONDS (9.7-12.2) H 05/23/18 12:51 INR 1.1 05/23/18 12:51 Assessment and Plan - Assessment and Plan (Free Text) Plan: 83 year old male with newly diagnosed liver and lung mass, seen and examined. Alert and responsive, no sob or chest pains, no acute distress. Discussed with DR Anastasiia Cheung, since the patient and family refused any further tests, plan to discharge to rehab for physical therapy and management for generalized weakness.
== END 2018-05-30 16:56 | DRG 442 ==
LOC: C.ER 11:18 → C.9E 13:43 → C.3T 14:37
PROVIDERS: ADMIT Internal Medicine Nephrology; ATTEND Internal Medicine Nephrology
DX: R16.0 Hepatomegaly, not elsewhere classified (principal); C79.9 Secondary malignant neoplasm of unspecified site; E46 Unspecified protein-calorie malnutrition; Z68.1 Body mass index [BMI] 19.9 or less, adult; E11.9 Type 2 diabetes mellitus without complications; F43.21 Adjustment disorder with depressed mood; I10 Essential (primary) hypertension; Z51.5 Encounter for palliative care; Z74.01 Bed confinement status; Z85.118 Personal history of other malignant neoplasm of bronchus and lung; C80.1 Malignant (primary) neoplasm, unspecified; D63.8 Anemia in other chronic diseases classified elsewhere; G89.3 Neoplasm related pain (acute) (chronic); K74.60 Unspecified cirrhosis of liver